=== PATIENT | female | born 1985 | race African-American/Black ===

== ENCOUNTER 2023-01-03 08:43 | Emergency (ER) | payer MEDICAID ==
[~2023-01-03] VITALS: Ht 157.5 cm; Wt 55.8 kg
[2023-01-03 09:06] VITALS: BP 111/78
--- NOTE | 2023-01-03 09:13 | NUR ---
PT. AMBULATED TO BED 02
--- NOTE | 2023-01-03 09:15 | NUR ---
37YO FEMALE PT C/O KELSEA SHARP FLANK PAIN AND TENDERNESS X5DAYS. REPORTS ONSET ALONG W/ URGENCY, DYSURIA , HEMATURIA FEVER(101), CHILLS AND N/V/D-blood. DENIES RELIEF AFTER TYLENOL OR DRAMAMINE . REAL ESTATE ATTORNEY TO TOUCH. NOTES PREVIOUS S/S. PT AAOX4, HOB POSITIONED PER COMFORT. HX: DENIES ALLERGIES: IBUPROFEN, METOCLOPRAMIDE
--- NOTE | 2023-01-03 10:10 | NUR ---
MD MAURICIO AT BEDSIDE FOR EVALUATION
[2023-01-03] MEDS ORDERED: ONDANSETRON 4 MG/2 ML VIAL IVP ONE (10:15)
[2023-01-03] MEDS ORDERED: NACL 0.9% 1,000 ML IV ONE (10:15)
[2023-01-03] MEDS ORDERED: fentaNYL citrate 0.05 MG/ML VIAL IVP ONE (10:15)
[2023-01-03 10:29] LABS: BASOPHILS % (AUTO) 0.3 % (0.0-2.0); EOSINOPHILS # (AUTO) 0.3 K/uL (0-0.4); EOSINOPHILS % (AUTO) 3.6 % (0.0-4.0); HEMATOCRIT 40.4 % (36-48); HEMOGLOBIN 13.6 g/dL (12.0-16.0); LYMPHOCYTES # (AUTO) 2.8 K/uL (2.5-16.5); LYMPHOCYTES % (AUTO) 32.7 % (20.5-51.1); MEAN CORPUSCULAR HEMOGLOBIN 32 pg (27-31); MEAN CORPUSCULAR HGB CONC 34 g/dL (33-37); MEAN CORPUSCULAR VOLUME 95.1 fL (80-94); MONOCYTES # (AUTO) 0.6 K/uL (0.8-1.0); MONOCYTES % (AUTO) 6.6 % (1.7-9.3); NEUTROPHILS # (AUTO) 4.8 K/uL (1.8-7.7); NEUTROPHILS % (AUTO) 56.8 % (42.2-75.2); PLATELET COUNT (AUTO) 249 K/uL (140-450); RED BLOOD CELL COUNT(AUTO) 4.24 MIL/uL (4.20-5.40); RED CELL DISTRIBUTION WIDTH 13.5 % (11.6-13.7); WHITE BLOOD COUNT (AUTO) 8.5 K/uL (4.8-10.8)
[2023-01-03] MEDS ORDERED: cefTRIAXone 1,000 MG VIAL ONE (10:29)
[2023-01-03 10:31] LABS: APPEARANCE,URINE CLEAR (CLEAR); BILIRUBIN,URINE NEGATIVE (NEGATIVE); BLOOD, URINE TRACE-I (NEGATIVE); COLOR,URINE YELLOW (YELLOW); LEUKOCYTE ESTERASE ,URINE NEGATIVE (NEGATIVE); NITRITE, URINE NEGATIVE (NEGATIVE); UGLUCOSE NEGATIVE (NEGATIVE)
[2023-01-03 10:43] LABS: ALBUMIN 3.7 g/dL (3.4-5.0); ANION GAP 7.6 (8-16); CARBON DIOXIDE 30.8 mmol/L (21-32); CREATININE 0.9 mg/dL (0.6-1.3); POTASSIUM 4.4 mmol/L (3.5-5.1); TOTAL BILIRUBIN 0.4 mg/dL (0.0-1.0)
[2023-01-03] MEDS ORDERED: CEPH500C16 PO (11:34)
[2023-01-03] MEDS ORDERED: ONDA-188 PO (11:34)
[2023-01-03] MEDS ORDERED: ACET-8905 PO (11:34)
[2023-01-03 11:44] VITALS: BP 118/65
--- NOTE | 2023-01-03 12:07 | NUR ---
IV removed, catheter intact and site benign. Applied folded 4x4 gauze and tape to stop bleeding.
--- NOTE | 2023-01-03 12:08 | NUR ---
The patient's care was reviewed and supervised by Kelli Jaramillo RN.
--- NOTE | 2023-01-03 12:08 | NUR ---
Patient discharged with v/s stable. Written and verbal after care instructions FOR PYLENOPHRITIS given and explained. Patient alert, oriented and verbalized understanding of instructions. Ambulatory with steady gait. All questions addressed prior to discharge. ID band removed. Patient advised to follow up with PMD. Rx of HYDROCODONE, KELFEX AND ZOFRAN ODT given. Opportunity to ask questions provided and answered.
[2023-01-03] MEDS ORDERED: TRAM50TA3 PO (12:59)
== END 2023-01-03 12:08 | disposition home or self-care (01) ==
LOC: MED 08:43
DX: N12 Tubulo-interstitial nephritis, not specified as acute or chronic (principal); F17.210 Nicotine dependence, cigarettes, uncomplicated; Z88.6 Allergy status to analgesic agent; Z79.899 Other long term (current) drug therapy; Z90.710 Acquired absence of both cervix and uterus; Z98.890 Other specified postprocedural states; Z88.8 Allergy status to other drugs, medicaments and biological substances
CPT/HCPCS: 36415; 80053; 81003; 81025; 83605; 85025; 87040; 87086; 96365; 96375; 99284; J0696; J2405; J3010

== ENCOUNTER 2023-02-10 14:38 | Emergency (ER) | payer MEDICAID ==
[~2023-02-10] VITALS: Ht 157.5 cm; Wt 55.3 kg
[~2023-02-10 14:38] MED LIST: CEPH500C16 PO; ONDA-188 PO; TRAM50TA3 PO
[2023-02-10 14:56] VITALS: BP 109/87
--- NOTE | 2023-02-10 15:12 | NUR ---
38 years old female presents to er c/o gen weakness for 1 week worse past 3 days.
[2023-02-10 15:37] LABS: BASOPHILS % (AUTO) 0.5 % (0.0-2.0); EOSINOPHILS # (AUTO) 0.1 K/uL (0-0.4); EOSINOPHILS % (AUTO) 1.6 % (0.0-4.0); HEMATOCRIT 39.7 % (36-48); HEMOGLOBIN 13.4 g/dL (12.0-16.0); LYMPHOCYTES # (AUTO) 1.7 K/uL (2.5-16.5); LYMPHOCYTES % (AUTO) 25.2 % (20.5-51.1); MEAN CORPUSCULAR HEMOGLOBIN 32 pg (27-31); MEAN CORPUSCULAR HGB CONC 34 g/dL (33-37); MEAN CORPUSCULAR VOLUME 94.6 fL (80-94); MONOCYTES # (AUTO) 0.4 K/uL (0.8-1.0); MONOCYTES % (AUTO) 5.2 % (1.7-9.3); NEUTROPHILS # (AUTO) 4.6 K/uL (1.8-7.7); NEUTROPHILS % (AUTO) 67.5 % (42.2-75.2); PLATELET COUNT (AUTO) 259 K/uL (140-450); RED CELL DISTRIBUTION WIDTH 13.5 % (11.6-13.7); WHITE BLOOD COUNT (AUTO) 6.8 K/uL (4.8-10.8)
[2023-02-10 15:55] LABS: ALBUMIN 3.7 g/dL (3.4-5.0); ANION GAP 13.7 (8-16); CARBON DIOXIDE 22.2 mmol/L (21-32); CREATININE 0.6 mg/dL (0.6-1.3); POTASSIUM 3.9 mmol/L (3.5-5.1); TOTAL BILIRUBIN 0.7 mg/dL (0.0-1.0)
[2023-02-10 16:33] LABS: APPEARANCE,URINE CLEAR (CLEAR); BILIRUBIN,URINE NEGATIVE (NEGATIVE); BLOOD, URINE TRACE-I (NEGATIVE); COLOR,URINE YELLOW (YELLOW); LEUKOCYTE ESTERASE ,URINE 1+ (NEGATIVE); NITRITE, URINE NEGATIVE (NEGATIVE); UGLUCOSE NEGATIVE (NEGATIVE)
[2023-02-10] MEDS ORDERED: CEPH-588 PO (17:24)
[2023-02-10 17:48] VITALS: BP 110/70
--- NOTE | 2023-02-10 17:50 | NUR ---
condition stable d/c home with instructions kadeem lozada reviewed understood left er via self ambulatory with steady gait.
== END 2023-02-10 17:48 | disposition home or self-care (01) ==
LOC: MED 14:38
DX: N39.0 Urinary tract infection, site not specified (principal); Z20.822 Contact with and (suspected) exposure to COVID-19; R42 Dizziness and giddiness; R51.9 Headache, unspecified; F17.210 Nicotine dependence, cigarettes, uncomplicated; Z88.5 Allergy status to narcotic agent; Z88.8 Allergy status to other drugs, medicaments and biological substances; Z79.899 Other long term (current) drug therapy
CPT/HCPCS: 36415; 80053; 81003; 81025; 85025; 87081; 87086; 99283

== ENCOUNTER 2023-07-03 16:23 | Emergency (ER) | payer MEDICAID ==
[~2023-07-03] VITALS: Ht 157.5 cm; Wt 57.6 kg
[~2023-07-03 16:23] MED LIST changes: +CEPH-588 PO
[2023-07-03 16:43] VITALS: BP 123/66; PULSE 78; RESP 20; TEMP 98.5; O2SAT 99
[2023-07-03 17:44] LABS: APPEARANCE,URINE CLEAR (CLEAR); BILIRUBIN,URINE NEGATIVE (NEGATIVE); BLOOD, URINE TRACE-I (NEGATIVE); COLOR,URINE YELLOW (YELLOW); LEUKOCYTE ESTERASE ,URINE NEGATIVE (NEGATIVE); NITRITE, URINE NEGATIVE (NEGATIVE); PH,URINE 7.5 (5.0-9.0); PROTEIN,URINE NEGATIVE (NEGATIVE); UGLUCOSE NEGATIVE (NEGATIVE); UROBILINOGEN,URINE 0.2 EU/dL (0.2 - 1)
[2023-07-03] MEDS ORDERED: ONDANSETRON 4 MG ODT PO ONE (17:55)
[2023-07-03] MEDS ORDERED: ACETAMINOPHEN EXTRA STRENGTH 500 MG TAB PO ONE (17:55)
[2023-07-03] MEDS ORDERED: ONDA-188 PO (18:39)
[2023-07-03] MEDS ORDERED: CEPH-588 PO (18:39)
[2023-07-03] MEDS ORDERED: PYR100 PO (18:39)
[2023-07-03] MEDS ORDERED: ONDANSETRON 4 MG TAB ONE (18:57)
[2023-07-03] MEDS ORDERED: ACETAMINOPHEN EXTRA STRENGTH 500 MG TAB ONE ×2 (18:57→18:59)
== END 2023-07-03 19:25 | disposition home or self-care (01) ==
LOC: MED 16:23
DX: N39.0 Urinary tract infection, site not specified (principal); Z88.5 Allergy status to narcotic agent; Z88.8 Allergy status to other drugs, medicaments and biological substances; Z79.899 Other long term (current) drug therapy
CPT/HCPCS: 81003; 81025; 87491; 99283; Q0162